=== PATIENT | male | born 1985 | race Caucasian/White ===

== ENCOUNTER 2025-02-04 17:32 | Emergency (ER) | payer BC ==
[2025-02-04] MEDS ORDERED: Sodium Chloride 0.9% 10 ML Syringe FLUSH PRN (17:43)
[2025-02-04] MEDS: LORazepam 2 MG/ML SDV IVPUSH ONE (17:57)
[2025-02-04 18:02] LABS: BASOPHILS PERCENT AUTO 0.2 % (0.3-3.8); EOSINOPHILS PERCENT AUTO 0.1 % (0.1-6.8); HEMATOCRIT 48.1 % (38.3-50.1); HEMOGLOBIN 17.5 g/dL (12.9-17.7); LYMPHOCYTES ABSOLUTE AUTO 1.6 x10-3/uL (0.5-4.5); LYMPHOCYTES PERCENT AUTO 14.5 % (15.8-45.3); MEAN CORPUSCULAR HEMOGLOBIN 31.1 pg (27.0-33.3); MEAN CORPUSCULAR HGB CONC 36.4 g/dL (28.7-35.3); MEAN CORPUSCULAR VOLUME 85.5 fL (80.8-98.7); MEAN PLATELET VOLUME 7.9 fL (6.7-11.0); MONOCYTES ABSOLUTE AUTO 0.9 x10-3/uL (0.0-1.2); MONOCYTES PERCENT AUTO 7.6 % (5.5-15.2); NEUTROPHILS ABSOLUTE AUTO 8.8 x10-3/uL (1.7-6.9); NEUTROPHILS PERCENT AUTO 77.6 % (40.3-71.8); PLATELET COUNT,PLT 233 x10(3)uL (117-477); RED BLOOD CELL COUNT 5.62 x10(6)uL (3.90-5.90); RED CELL DISTRIBUTION WIDTH 12.6 % (12.4-15.0); WHITE BLOOD CELL COUNT,WBC 11.3 x10-3/uL (3.2-10.1)
[2025-02-04 18:10] LABS: BLOOD UREA NITROGEN,BUN 5 mg/dL (7-18); BUN/CREATININE RATIO 4.5 (9-20); CALCIUM 9.5 mg/dL (8.6-10.2); CARBON DIOXIDE,CO2 26 mmol/L (21-32); CHLORIDE,CL 99 mmol/L (100-110); CREATININE 1.1 mg/dL (0.70-1.30); ESTIMATED GFR 86 mL/min (>60); GLUCOSE RANDOM 167 mg/dL (80-116); POTASSIUM,K 3.1 mmol/L (3.5-5.3); SODIUM,NA 136 mmol/L (135-145)
[2025-02-04 18:16] LABS: A/G RATIO 1.1; ALANINE AMINOTRANSFERASE,ALT 36 U/L (12-36); ALBUMIN 4.5 g/dL (3.5-5.2); ALKALINE PHOSPHATASE 61 IU/L (56-112); ASPARTATE AMNIOTRANSFERASE,AST 18 IU/L (5-25); BILIRUBIN TOTAL 1.3 mg/dL (0.1-1.3); PROTEIN TOTAL,TP 8.5 g/dL (6.0-8.0)
[2025-02-04 18:18] LABS: C-REACTIVE PROTEIN < 0.50 mg/dL (<0.50); TROPONIN I 10.4 pg/mL (4.0-60.3)
[2025-02-04] MEDS: Potassium Chloride 20 MEQ Tab.ER PO ONE (18:36)
[2025-02-04] MEDS: OLANZapine 5 MG Tab PO ONE (18:36)
== END 2025-02-04 20:47 | disposition home or self-care (01) ==
LOC: FB.ED 17:32
DX: E87.6 Hypokalemia (principal); F41.0 Panic disorder [episodic paroxysmal anxiety]; I10 Essential (primary) hypertension; Z79.899 Other long term (current) drug therapy
CPT/HCPCS: 36415; 71045; 80053; 84443; 84484; 85025; 85379; 86140; 93005; 96374; 99285-25; A9270-GY; J2060

== ENCOUNTER 2025-02-24 06:35 | Emergency (ER) | payer BC ==
[2025-02-24] MEDS: LORazepam 1 MG Tab PO ONE (08:00)
== END 2025-02-24 08:05 | disposition home or self-care (01) ==
LOC: FB.ED 06:35
DX: F41.1 Generalized anxiety disorder (principal); I10 Essential (primary) hypertension
CPT/HCPCS: 99284; A9270

== ENCOUNTER 2025-02-26 06:40 | Emergency (ER) | payer BC ==
[2025-02-26 07:29] LABS: LYMPHOCYTES ABSOLUTE AUTO 1.6 x10-3/uL (0.5-4.5); MONOCYTES ABSOLUTE AUTO 0.8 x10-3/uL (0.0-1.2)
[2025-02-26 07:34] LABS: BASOPHILS PERCENT AUTO 0.4 % (0.3-3.8); EOSINOPHILS PERCENT AUTO 0.5 % (0.1-6.8); HEMATOCRIT 46.9 % (38.3-50.1); HEMOGLOBIN 17.3 g/dL (12.9-17.7); LYMPHOCYTES PERCENT AUTO 15.3 % (15.8-45.3); MEAN CORPUSCULAR HEMOGLOBIN 31.2 pg (27.0-33.3); MEAN CORPUSCULAR HGB CONC 36.9 g/dL (28.7-35.3); MEAN CORPUSCULAR VOLUME 84.5 fL (80.8-98.7); MEAN PLATELET VOLUME 8.2 fL (6.7-11.0); MONOCYTES PERCENT AUTO 8.2 % (5.5-15.2); NEUTROPHILS ABSOLUTE AUTO 7.7 x10-3/uL (1.7-6.9); NEUTROPHILS PERCENT AUTO 75.6 % (40.3-71.8); PLATELET COUNT,PLT 246 x10(3)uL (117-477); RED BLOOD CELL COUNT 5.55 x10(6)uL (3.90-5.90); RED CELL DISTRIBUTION WIDTH 12.8 % (12.4-15.0); WHITE BLOOD CELL COUNT,WBC 10.2 x10-3/uL (3.2-10.1)
[2025-02-26 07:37] LABS: BLOOD UREA NITROGEN,BUN 11 mg/dL (7-18); CALCIUM 9.1 mg/dL (8.6-10.2); CARBON DIOXIDE,CO2 26 mmol/L (21-32); CHLORIDE,CL 96 mmol/L (100-110); EST CRCL DRUG DOSING (CG) 103.54 mL/min; ESTIMATED GFR 97 mL/min (>60); GLUCOSE RANDOM 123 mg/dL (80-116); POTASSIUM,K 3.1 mmol/L (3.5-5.3); SODIUM,NA 134 mmol/L (135-145)
[2025-02-26 07:49] LABS: A/G RATIO 1.2; ALANINE AMINOTRANSFERASE,ALT 35 U/L (12-36); ALBUMIN 4.4 g/dL (3.5-5.2); ALKALINE PHOSPHATASE 60 IU/L (56-112); ASPARTATE AMNIOTRANSFERASE,AST 22 IU/L (5-25); BILIRUBIN TOTAL 1.4 mg/dL (0.1-1.3); PROTEIN TOTAL,TP 8.2 g/dL (6.0-8.0)
[2025-02-26 08:01] LABS: AMPHETAMINES SCREEN, URINE NEGATIVE (NEGATIVE); BARBITURATE SCREEN,URINE NEGATIVE (NEGATIVE); BENZODIAZEPINES SCREEN,URINE POSITIVE (NEGATIVE); METHADONE SCREEN, URINE NEGATIVE (NEGATIVE); METHAMPHETAMINE SCREEN, URINE NEGATIVE (NEGATIVE); OXYCODONE SCREEN,URINE NEGATIVE (NEGATIVE); THC SCREEN,URINE NEGATIVE (NEGATIVE)
[2025-02-26 08:02] LABS: BUPRENORPHINE SCREEN,URINE NEGATIVE (NEGATIVE)
== END 2025-02-26 08:30 | disposition home or self-care (01) ==
LOC: FB.ED 06:40
DX: F41.1 Generalized anxiety disorder (principal); I10 Essential (primary) hypertension; E87.6 Hypokalemia; Z79.899 Other long term (current) drug therapy
CPT/HCPCS: 36415; 80053; 80307; 83735; 84443; 85025; 99284